=== PATIENT | female | born 1980 | race Two or more races ===

== ENCOUNTER 2024-03-06 08:23 | Emergency (ER) | payer OTHER ==
[~2024-03-06] VITALS: Ht 167.6 cm; Wt 68.0 kg
[2024-03-06] MEDS ORDERED: ANASTROZOLE1 MG (08:27)
[2024-03-06] MEDS ORDERED: PROLIA60 MG/1 ML (08:28)
[2024-03-06] MEDS ORDERED: KETOROLAC TROMETHAMINE 60 MG VIAL IM ONE ×2 (11:00→11:02)
[2024-03-06 11:13] LABS: PH,URINE 7.5 (5.0-8.0); URINE APPEARANCE Clear; URINE BILIRRUBIN Negative (NEGATIVE); URINE BLOOD Negative; URINE COLOR Yellow; URINE LEUKOCYTE Trace; URINE NITRATE Negative; URINE PROTEIN Negative (NEGATIVE); URINE UROBILINOGEN 0.2 E.U./dl
[2024-03-06 11:14] LABS: URINE BACTERIA 45.3 uL (0.0-1933); URINE EPITHELIAL CELLS 10.3 uL (0.0-38.8); URINE RBC 3.9 uL (0.0-20.8); URINE WBC 21.7 uL (0.0-23.2)
[2024-03-06 11:19] LABS: URINE GLUCOSE 500 MG/DL (NEGATIVE)
[2024-03-06 11:31] LABS: CALCIUM 9.7 mg/dL (8.5-10.1); CREATININE SERUM 0.88 mg/dL (0.55-1.02); GFR 69.8; POTASSIUM 3.6 mEq/L (3.5-5.1)
[2024-03-06 12:00] LABS: HEMATOCRIT 38.5 % (36.0-45.00); HEMOGLOBIN 13.1 g/dL (12.0-15.00); MEAN CELL VOLUME 91.3 fL (80.00-100.00); PLATELET COUNT 227 K/uL (150-450); RED BLOOD COUNT 4.22 M/uL (4.00-6.00); RED CELL DISTRIBUTION WIDTH 13.7 % (11.5-14.5)
[2024-03-06] MEDS ORDERED: CIPROFLOXACIN IN 5 % DEXTROSE 400 MG/200 ML PIGGYBAG IV ONE ×2 (13:29→13:30)
== END 2024-03-06 15:47 ==
LOC: ER 08:24
PROVIDERS: General Practice
DX: N61.0 Mastitis without abscess (principal); Z88.0 Allergy status to penicillin

== ENCOUNTER 2024-03-08 05:32 | Inpatient (IN) | payer OTHER ==
[~2024-03-08] VITALS: Ht 167.6 cm; Wt 68.0 kg
[~2024-03-08 05:32] MED LIST: ANASTROZOLE1 MG; PROLIA60 MG/1 ML
[2024-03-08] MEDS ORDERED: KETOROLAC TROMETHAMINE 30 MG VIAL IV STA (06:01)
[2024-03-08] MEDS ORDERED: levoFLOXacin IN DEXTROSE 5 % 500MG/100ML PIGGYBAG IV STA (06:01)
[2024-03-08] MEDS ORDERED: levoFLOXacin IN DEXTROSE 5 % 500MG/100ML PIGGYBAG IV ONE (06:05)
[2024-03-08] MEDS ORDERED: KETOROLAC TROMETHAMINE 30 MG VIAL ONE (06:05)
[2024-03-08 06:52] LABS: HEMATOCRIT 31.5 % (36.0-45.00); HEMOGLOBIN 10.9 g/dL (12.0-15.00); MEAN CELL VOLUME 89.4 fL (80.00-100.00); MEAN CORPUSCULAR HEMOGLOBIN 30.9 pg (27.00-32.0); MEAN CORPUSCULAR HGB CONC 34.6 g/dl (32.0-36.0); PLATELET COUNT 201 K/uL (150-450); RED BLOOD COUNT 3.52 M/uL (4.00-6.00); RED CELL DISTRIBUTION WIDTH 13.9 % (11.5-14.5)
[2024-03-08 07:25] LABS: ALBUMIN 3.3 gm/dL (3.4-5.0); BILIRUBIN TOTAL 1.54 mg/dL (0.3-1.2); CREATININE SERUM 0.73 mg/dL (0.55-1.02); GFR 86.61; POTASSIUM 3.28 mEq/L (3.5-5.1); TOTAL PROTEIN 7.3 gm/dL (6.4-8.2)
[2024-03-08 08:10] LABS: INR 0.99; PARTIAL THROMBOPLASTIN TIME 33.3 SECONDS (22.0-34.0); PROTHROMBIN TIME 10.4 SECONDS (9.0-11.5)
[2024-03-08] MEDS ORDERED: levoFLOXacin IN DEXTROSE 5 % 150 ML IV SCH (14:05)
[2024-03-08] MEDS ORDERED: KETOROLAC TROMETHAMINE 30 MG VIAL IM PRN (14:15)
[2024-03-08] MEDS ORDERED: ACETAMINOPHEN 325 MG TABLET PO PRN (14:15)
[2024-03-08] MEDS ORDERED: 0.9 % SODIUM CHLORIDE 1,000 ML IV SCH (14:15)
[2024-03-08] MEDS ORDERED: POTASSIUM CHLORIDE 10 MEQ CAPSULE PO ONE (14:15)
[2024-03-08] MEDS ORDERED: levoFLOXacin IN DEXTROSE 5 % 5 MG/ML PIGGYBAG IV ONE (15:27)
[2024-03-08 15:56] LABS: URINE APPEARANCE Clear; URINE BILIRRUBIN Negative (NEGATIVE); URINE COLOR Yellow; URINE GLUCOSE Negative (NEGATIVE); URINE LEUKOCYTE Negative; URINE NITRATE Negative; URINE PROTEIN 30 (NEGATIVE)
[2024-03-08 15:57] LABS: URINE BACTERIA 23.9 uL (0.0-1933); URINE EPITHELIAL CELLS 17.1 uL (0.0-38.8); URINE WBC 27.9 uL (0.0-23.2)
[2024-03-08 16:18] LABS: URINE BLOOD TRACE; URINE CRYSTALS FEW /HPF
[2024-03-09] MEDS ORDERED: POTASSIUM CHLORIDE 10 MEQ CAPSULE PO NR (14:15)
[2024-03-09] MEDS ORDERED: LINEZOLID 600 MG TABLET PO SCH (21:00)
[2024-03-10] MEDS ORDERED: levoFLOXacin IN DEXTROSE 5 % 5 MG/ML PIGGYBAG IV SCH (09:00)
[2024-03-10] MEDS ORDERED: CEFTRIAXONE SODIUM 2,000 MG VIAL IV SCH (09:00)
[2024-03-10 12:56] LABS: HEMOGLOBIN 11.3 g/dL (12.0-15.00); MEAN CELL VOLUME 89.6 fL (80.00-100.00); MEAN CORPUSCULAR HEMOGLOBIN 30.7 pg (27.00-32.0); MEAN CORPUSCULAR HGB CONC 34.2 g/dl (32.0-36.0); PLATELET COUNT 278 K/uL (150-450); RED BLOOD COUNT 3.68 M/uL (4.00-6.00); RED CELL DISTRIBUTION WIDTH 13.7 % (11.5-14.5)
[2024-03-10 13:58] LABS: CALCIUM 9.5 mg/dL (8.5-10.1); CREATININE SERUM 0.51 mg/dL (0.55-1.02); POTASSIUM 3.7 mEq/L (3.5-5.1)
[2024-03-10] MEDS ORDERED: POVIDONE-IODINE 0.75 OZ PACKET TOP ONE (18:00)
[2024-03-10] MEDS ORDERED: POVIDONE-IODINE SCRUB 118 ML BOTT TOP ONE ×3 (18:00→18:30)
[2024-03-10] MEDS ORDERED: HYDROGEN PEROXIDE 118 ML SOLUTION TOP ONE (18:30)
[2024-03-10] MEDS ORDERED: BACITRACIN 28.35 GM OINT.TUBE TOP ONE (18:30)
[2024-03-10] MEDS ORDERED: POVIDONE-IODINE 118 ML BOTT TOP ONE ×2 (18:30)
== END 2024-03-13 14:37 | disposition home or self-care (01) | DRG 584 ==
LOC: ER 05:33 → MEDI 15:01 → MEDJ 15:01
PROVIDERS: General Practice; Plastic Surgery; ADMIT Internal Medicine; ATTEND Internal Medicine
PROC: 0H9T00Z Drainage of Right Breast with Drainage Device, Open Approach (ICD-10-PCS; 2024-03-10)
PROC: [UNRECOGNIZED PROCEDURE] (2024-03-10)
PROC: 0HPT0JZ Removal of Synthetic Substitute from Right Breast, Open Approach (ICD-10-PCS; principal; 2024-03-10 17:00)
DX: T85.44XA Capsular contracture of breast implant, initial encounter (principal); T81.40XA Infection following a procedure, unspecified, initial encounter; N61.0 Mastitis without abscess; Y65.8 Other specified misadventures during surgical and medical care; Z90.13 Acquired absence of bilateral breasts and nipples